=== PATIENT | female | born 1995 | race Two or more races ===

== ENCOUNTER → 2020-10-17 | Emergency (ER) | payer OTHER ==
[~2020-10-17] VITALS: Ht 167.6 cm; Wt 77.1 kg
[~2020-10-17] MED LIST: MIRALAX510 GM PO
== END | disposition home or self-care (01) ==
LOC: ER 20:26
DX: K59.09 Other constipation (principal)

== ENCOUNTER 2020-10-19 19:13 | Emergency (ER) | payer OTHER ==
[~2020-10-19] VITALS: Ht 154.9 cm; Wt 74.8 kg
== END 2020-10-20 00:16 | disposition home or self-care (01) ==
LOC: ER 19:13
DX: K59.00 Constipation, unspecified (principal); N39.0 Urinary tract infection, site not specified; E86.0 Dehydration; R11.2 Nausea with vomiting, unspecified; R10.31 Right lower quadrant pain

== ENCOUNTER 2024-03-10 20:34 | Emergency (ER) | payer OTHER ==
[~2024-03-10] VITALS: Ht 154.9 cm; Wt 79.4 kg
[2024-03-10 23:09] LABS: HEMATOCRIT 37.1 % (36.0-45.00); HEMOGLOBIN 12.5 g/dL (12.0-15.00); MEAN CELL VOLUME 82.8 fL (80.00-100.00); MEAN CORPUSCULAR HEMOGLOBIN 27.9 pg (27.00-32.0); MEAN CORPUSCULAR HGB CONC 33.7 g/dl (32.0-36.0); PLATELET COUNT 290 K/uL (150-450); RED BLOOD COUNT 4.48 M/uL (4.00-6.00); RED CELL DISTRIBUTION WIDTH 15.6 % (11.5-14.5)
[2024-03-10 23:38] LABS: PH,URINE 6.5 (5.0-8.0); URINE APPEARANCE Cloudy; URINE BILIRRUBIN Negative (NEGATIVE); URINE BLOOD Negative; URINE GLUCOSE Negative (NEGATIVE); URINE LEUKOCYTE Negative; URINE NITRATE Negative; URINE PROTEIN Negative (NEGATIVE); URINE UROBILINOGEN 0.2 E.U./dl
[2024-03-10] MEDS ORDERED: DEXTROSE 5 % AND 0.9 % NACL 1,000 ML IV STA (23:38)
[2024-03-10] MEDS ORDERED: KETOROLAC TROMETHAMINE 15 MG VIAL IV STA (23:39)
[2024-03-10 23:42] LABS: URINE BACTERIA 379.1 uL (0.0-1933); URINE EPITHELIAL CELLS 63.4 uL (0.0-38.8); URINE WBC 13.2 uL (0.0-23.2)
[2024-03-11] MEDS ORDERED: LACTULOSE 20 G/30 ML BLIST.PACK PO STA (03:40)
[2024-03-11] MEDS ORDERED: MINERAL OIL 30 ML BLIST.PACK PO STA (03:41)
[2024-03-11] MEDS ORDERED: MAGNESIUM HYDROXIDE 400 MG/5 ML ML PO STA (03:42)
== END 2024-03-11 04:27 | disposition home or self-care (01) ==
LOC: ER 20:36
DX: K59.01 Slow transit constipation (principal); N39.0 Urinary tract infection, site not specified; Z91.041 Radiographic dye allergy status; Z91.018 Allergy to other foods; Z20.822 Contact with and (suspected) exposure to COVID-19